=== PATIENT | female | born 1950 | race American Indian/Alaskan Native ===

== ENCOUNTER 2017-03-16 15:55 | Outpatient (CLI) | payer OTHER | END 2017-03-16 15:56 | disposition home or self-care (01) | LOC: LABHHL 15:55 | PROVIDERS: ATTEND Specialist | DX: L98.9 Disorder of the skin and subcutaneous tissue, unspecified (principal) | CPT/HCPCS: 88305 ==

== ENCOUNTER 2019-11-14 09:48 | Outpatient (CLI) | payer OTHER ==
--- NOTE | 2019-11-14 11:32 | Mammography Report ---
Procedure: Ultrasound-guided right breast nodule biopsy, Clinical information/indication: Patient with an intraductal 5 mm nodule in the upper outer right maria c ast, here for biopsy Comparison: Screening mammogram from 09/06/2027 and recent outside ultrasound imaging which the patien t did provide. Procedure: The benefits, indications and risks were discussed with the patient including but not limi cholo to bleeding, infection, hematoma formation, and inadequate tissue sampling. The patient agreed to proceed with both verbal and written consent. A timeout procedure was performed using 2 patient iden tifiers. The breast was prepped and draped in the usual sterile fashion. Lidocaine with and without epinephrin e were used for local anesthesia. Under direct ultrasound guidance, multiple core samples were obtain ed of the tiny right breast nodule using a vacuum-assisted needle. A biopsy marker was then placed. B iopsy device was removed and hemostasis achieved with manual pressure. A sterile dressing was applied to the skin. The patient tolerated the procedure without difficulty. No complications were encountered. Specimens were sent to pathology. The patient was then sent for a limited mammogram to confirm clip placement. IMPRESSION: 1. Technically successful right breast biopsy. 2. Post-procedure mammogram demonstrates satisfactory clip placement. An addendum will be issued once pathology returns on this procedure. Signer Name: Tomas Whiteside MD Signed: 11/14/2019 11:28 AM Workstation Name: [id number]
== END 2019-11-14 09:49 | disposition home or self-care (01) ==
LOC: SPVWC 09:48
PROVIDERS: ATTEND Surgery
DX: N63.11 Unspecified lump in the right breast, upper outer quadrant (principal); R92.8 Other abnormal and inconclusive findings on diagnostic imaging of breast; N64.89 Other specified disorders of breast
CPT/HCPCS: 88305

== ENCOUNTER 2020-02-20 10:36 | Outpatient (CLI) | payer OTHER ==
--- NOTE | 2020-02-20 16:38 | Magnetic Resonance Report ---
Bilateral breast MRI with and without contrast. History: Personal history of left breast cancer with mastectomy and reconstruction, recent history o f right clear nipple discharge, benign ultrasound-guided biopsy 11/14/2019 of small intraductal lesion Procedure: Axial T1 and T2-weighted fat-sat images were obtained precontrast. 18 cc MultiHance was i njected intravenously and serial axial T1-weighted images with fat saturation were obtained postcontr ast. 3-D MIP projections, Kinetic analysis and subtraction imaging was utilized to evaluate. A Stroho 8 channel breast coil was utilized for image acquisition. Comparison: Right breast ultrasound-guided biopsy images 11/14/2019, right mammogram 11/14/2019 Findings: Background level of enhancement is minimal. No suspicious axillary or clavicular nodes are identified. No abnormal bone marrow signal is seen. No significant chest wall enhancement is noted. Right breast: Mild benign-appearing stippled enhancement is noted. Relatively recent biopsy changes a re seen in the upper outer quadrant. No suspicious lesions are seen. No retroareolar abnormality is s een to explain history of clear nipple discharge. Left breast: Left mastectomy changes with TRAM flap obstruction are seen. No suspicious lesions are n oted. Impression: No suspicious lesions are seen. Recommend clinical follow-up of nipple discharge and sono graphic follow-up of prior biopsy site BIRADS: 2: Benign Signer Name: Jacob Bran MD Signed: 02/20/2020 4:34 PM Workstation Name: [id number]
== END 2020-02-20 10:37 | disposition home or self-care (01) ==
LOC: SPVIMAG 10:36
PROVIDERS: ATTEND Surgery
DX: N64.52 Nipple discharge (principal); Z85.3 Personal history of malignant neoplasm of breast
CPT/HCPCS: A9577; C8908; 77049

== ENCOUNTER 2020-09-11 14:30 | Outpatient (CLI) | payer OTHER ==
--- NOTE | 2020-09-12 07:13 | Mammography Report ---
DIGITAL SCREENING MAMMOGRAM WITH CAD, 09/11/2020 CLINICAL INFORMATION / INDICATION: Routine screening mammography. TECHNIQUE: Digital right 2D mammography was obtained in the craniocaudal and mediolateral oblique pr ojections. This examination was interpreted with the benefit of Computer-Aided Detection analysis. COMPARISON: 09/06/2019 FINDINGS: Breast Density: There are scattered areas of fibroglandular density. No dominant mass, suspicious calcifications, or architectural distortion in either breast. Biopsy clips noted on the right. Left-sided mastectomy change. IMPRESSION: No mammographic evidence of malignancy. Follow up recommendation: Routine yearly BI-RADS Category 2: Benign. A "normal" or negative report should not discourage follow up or biopsy of a clinically significant f inding. A written summary of these findings will be mailed to the patient. The patient will be entered into a mammography reporting system which will generate a reminder letter for the patient's next appointmen t at the appropriate interval. The [employer] recommends yearly mammograms starting at age 40 and continuing as l ricardo as a woman is in good health. Breast MRI is recommended for women with an approximate 20-25% or greater lifetime risk of breast cancer, including women with a strong family history of breast or ova robin cancer or who have been treated for Hodgkin's disease. Signer Name: Tomas Whiteside MD Signed: 09/12/2020 7:08 AM Workstation Name: [id number]
== END 2020-09-11 14:31 | disposition home or self-care (01) ==
LOC: SPVWC 14:30
PROVIDERS: ATTEND Surgery
DX: Z12.31 Encounter for screening mammogram for malignant neoplasm of breast (principal); Z90.12 Acquired absence of left breast and nipple

== ENCOUNTER 2020-11-12 08:09 | Outpatient (CLI) | payer OTHER ==
--- NOTE | 2020-11-12 09:06 | Ultrasound Report ---
ULTRASOUND BREAST RIGHT LIMITED, 11/12/2020 CLINICAL INFORMATION / INDICATION: Follow-up right breast biopsy, nipple discharge. TECHNIQUE: Targeted ultrasound evaluation was performed of the area of interest. COMPARISON: Prior right breast ultrasound-guided biopsy, 11/14/2019 and recent mammogram 09/11/2020. FINDINGS: The intraductal masslike area biopsied on 11/14/2019 cannot be reproduced sonographically. Recent mamm ogram showed no significant mass in this location. There is mild subareolar ductal ectasia noted, but without evidence for intraductal mass or other significant finding. IMPRESSION: No sonographic evidence of malignancy. Clinical correlation is recommended for complaint of nipple discharge. Follow up recommendation: Routine yearly BI-RADS Category 2: Benign. A normal or "negative" report should not preclude biopsy or follow-up of a clinically suspicious find ing. Signer Name: Leatha Adams MD Signed: 11/12/2020 9:01 AM Workstation Name: [id number]
== END 2020-11-12 08:10 | disposition home or self-care (01) ==
LOC: SPVWC 08:09
PROVIDERS: ATTEND Surgery
DX: N64.52 Nipple discharge (principal); R92.8 Other abnormal and inconclusive findings on diagnostic imaging of breast

== ENCOUNTER 2020-12-01 05:57 | Day surgery (SDC) | payer OTHER ==
[2020-12-01] MEDS ORDERED: ceFAZolin/STERILE WATER 2 GM/20 ML SYRINGE IV NR (06:00)
[2020-12-01] MEDS ORDERED: GABAPENTIN 300 MG CAP PO NR (06:00)
[2020-12-01] MEDS ORDERED: ACETAMINOPHEN 500 MG TAB PO SCH (06:00)
[2020-12-01] MEDS ORDERED: LACTATED RINGERS 1,000 ML IV SCH (06:00)
[2020-12-01] MEDS ORDERED: CELECOXIB 200 MG CAP PO NR (06:00)
[2020-12-01] MEDS ORDERED: MIDAZOLAM 2 MG/2 ML INJ IV NR (06:00)
--- NOTE | 2020-12-01 07:20 | Anesthesia Day of Surgery ---
Anesthesia Day of Surgery - Day of Surgery Patient Examined: Yes Patient H&P Reviewed: Yes Patient is NPO: Yes
--- NOTE | 2020-12-01 07:20 | Anesthesia Consultation ---
Anesthesia Consult and Med Hx Date of service: 12/01/20 - Airway Anesthetic Teeth Evaluation: Poor ROM Head & Neck: Adequate Mental/Hyoid Distance: Adequate Mallampati Class: Class III Intubation Access Assessment: Possibly Difficult - Pre-Operative Health Status ASA Pre-Surgery Classification: ASA3 Proposed Anesthetic Plan: General - Pulmonary Hx Smoking: Yes (former smoker) Hx Asthma: Yes Hx Respiratory Symptoms: No COPD: Yes (daily maintenance inhalers; no recent rescue inhaler use) Hx Sleep Apnea: Yes (no CPAP) - Cardiovascular System Hx Hypertension: Yes Hx Heart Attack/AMI: No Hx Percutaneous Transluminal Coronary Angioplasty (PTCA): No - Central Nervous System CVA: No - Endocrine Hx Renal Disease: No Hx Liver Disease: No 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
[2020-12-01] MEDS ORDERED: LIDOCAINE MPF (2%) 20 MG/1 ML VIAL 5 ML ONE (07:33)
[2020-12-01] MEDS ORDERED: dexAMETHasone 20 MG/5 ML VIAL ONE (07:33)
[2020-12-01] MEDS ORDERED: propofoL 200 MG/20 ML VIAL IV ONE (07:34)
[2020-12-01] MEDS ORDERED: LIDOCAINE (1%) 10 MG/1 ML VIAL 20 ML MDV ONE (07:51)
[2020-12-01] MEDS ORDERED: BACITRACIN ZINC OINT 28.4 GM TP ONE (07:52)
[2020-12-01] MEDS ORDERED: KETOROLAC 30 MG/1 ML INJ ONE (07:52)
[2020-12-01] MEDS ORDERED: BUPIVACAINE/PF (0.25%) 2.5 MG/ML 30 ML VIAL INFILTRATI ONE (07:52)
[2020-12-01] MEDS ORDERED: ONDANSETRON 4 MG/2 ML INJ IV PRN (08:00)
[2020-12-01] MEDS ORDERED: oxyCODONE /ACETAMINOPHEN 5-325MG TAB PO PRN (08:00)
[2020-12-01] MEDS ORDERED: fentaNYL 100 MCG/2 ML INJ IV PRN (08:00)
[2020-12-01] MEDS ORDERED: ePHEDrine SULFATE 50 MG/1 ML INJ ONE (08:39)
[2020-12-01] MEDS ORDERED: PHENYLEPHRINE/NS 1,000 MCG/10 ML SYRINGE (OR USE) IV ONE (09:00)
--- NOTE | 2020-12-01 09:33 | Short Stay Summary ---
Short Stay Documentation Date of service: 12/01/20 - History H&P: obtained from office - Allergies and Medications Current Medications: Allergies No Known Allergies Allergy (Verified 11/18/20 14:07) Home Medications Medication Instructions Recorded Confirmed Last Taken Type Albuterol Mdi (or & Nicu Only) 1 puff IH Q4HR PRN 11/26/20 11/26/20 Unknown History [ProAir HFA Inhaler] Ascorbic Acid [Vitamin C] 500 mg PO DAILY 11/26/20 11/26/20 Unknown History Calcium Glucarate [Calcium 500 mg PO DAILY 11/26/20 11/26/20 Unknown History D-Glucarate] Ergocalciferol(Vitamin D2)(Nf) 50,000 unit PO DAILY 11/26/20 11/26/20 Unknown History [Vitamin D (Nf)] Fluticasone/Umeclidin/Vilanter 1 each IH DAILY 11/26/20 11/26/20 Unknown History [Trelegy Ellipta 200-62.5-25] Olmesartan/Hydrochlorothiazide 1 each PO DAILY 11/26/20 11/26/20 Unknown History [Olmesartan-Hctz 40-12.5 mg Tab] Ibuprofen [Motrin 800 MG tab] 800 mg PO Q8HR PRN #10 tablet 12/01/20 Unknown Rx Active Medications Acetaminophen (Acetaminophen 500 Mg Tab) 1,000 mg PO PREOP FANY Stop: 12/01/20 21:00 Last Admin: 12/01/20 06:48 Dose: 1,000 mg Documented by: Cefazolin Sodium (Cefazolin/Sterile Water 2 Gm/20 Ml Syringe) 2 gm IV PREOP NR Stop: 12/01/20 21:00 Celecoxib (Celecoxib 200 Mg Cap) 200 mg PO PREOP NR Stop: 12/01/20 23:59 Last Admin: 12/01/20 06:48 Dose: 200 mg Documented by: Fentanyl (Fentanyl 100 Mcg/2 Ml Inj) 50 mcg IV Q5MIN PRN PRN Reason: Pain , Severe (7-10) Stop: 12/01/20 17:00 Gabapentin (Gabapentin 300 Mg Cap) 300 mg PO PREOP NR Stop: 12/01/20 23:59 Last Admin: 12/01/20 06:48 Dose: 300 mg Documented by: Lactated Ringer's (Lactated Ringers) 1,000 mls @ 100 mls/hr IV DIRECT FANY Stop: 12/01/20 23:59 Last Admin: 12/01/20 06:48 Dose: 100 mls/hr Documented by: Midazolam HCl (Midazolam 2 Mg/2 Ml Inj) 2 mg IV PREOP NR Stop: 12/01/20 23:59 Last Admin: 12/01/20 07:58 Dose: 2 mg Documented by: Ondansetron HCl (Ondansetron 4 Mg/2 Ml Inj) 4 mg IV ONCE PRN PRN Reason: Nausea And Vomiting Stop: 12/01/20 17:00 Oxycodone/Acetaminophen (Oxycodone /Acetaminophen 5-325mg Tab) 1 tab PO ONCE PRN PRN Reason: Pain, Moderate (4-6) Stop: 12/01/20 17:00 - Brief post op/procedure progress note Date of procedure: 12/01/20 Pre-op diagnosis: Right nipple spontaneous discharge Post-op diagnosis: same Procedure: Right nipple terminal duct excisional biopsy Anesthesia: GETA Findings: clear nipple discharge 11:00 position Surgeon: MARKO VALLE Estimated blood loss: minimal Pathology: list Specimen disposition: to lab Condition: stable - Disposition Condition at discharge: Good Disposition: 01 HOME / SELF CARE / HOMELESS Short Stay Discharge Plan Activity: other (no heavy lifting) Diet: regular Wound: keep clean and dry (wear breast binder; may shower in 48 hours; no baths, pools or lakes; apply bacitracin twice daily) Follow up with: MARKO VALLE MD [Staff Physician] - 7 Days Prescriptions: Ibuprofen [Motrin 800 MG tab] 800 mg PO Q8HR PRN #10 tablet PRN Reason: Pain , Severe (7-10)
--- NOTE | 2020-12-01 09:42 | Operative Report ---
Operative Report Operative Report: Operative Report: Date of procedure:December 01, 2020 Pre-operative diagnosis: Spontaneous right clear nipple discharge Post-operative diagnosis: Same Procedure name: Right nipple terminal duct excisional biopsy Surgeon: Gretel Cortez M.D. Anesthesia: Gen. Findings: Clear nipple discharge from rigjt nipple was appropriately identified and dissected free and sent to pathology Complications: None Drains: None Estimated blood loss: Minimal Disposition: PACU in good condition Indications for operative procedure: This is a 70 year old lady with a personal history of left breast cancer and right nipple spontaneous clear nipple discharge. She was diagnosed with stage 0 left breast cancer in 2000 and underwent a left total mastectomy with delayed latissimus dorsi flap with implant placement and right reduction mammoplasty. Patient was seen September 06, 2019 with findings of right clear spontaneous nipple discharge. Right mammogram at that time obtained with benign findings BI-RADS 2. Ultrasound performed at [facility] with findings of duct ectasia with intraductal small nodule at the 10 o'clock position of 4 x 3 mm and recommendation for biopsy BI-RADS 4. Patient underwent breast biopsy with benign findings. Recommendations were to proceed with right nipple terminal duct excisional biopsy given clear spontaneous nipple discharge and also given personal history left breast cancer which increased her risk for contralateral breast cancer. Patient declined at that time. Patient recently wished to proceed with surgery and recent diagnostic right mammogram and right breast ultrasound with benign findings BI-RADS 2. Patient understood pending final pathology additional surgery may be indicated. Patient wished to proceed with the above procedure. Procedure in detail: The patient was taken to the operating room. Gen. anesthesia was administered. The right breast was prepped and draped in the normal sterile operative fashion. The clear discharging duct from the right nipple was identified around at the 11 o'clock position. Lacrimal probe was inserted. A lateral periareolar incision was made with a 15 blade knife with dissection taken down to the subcutaneous tissues (incision made at prior incision from mammoplasty). First began with dissection of the tissues posterior to the nipple taken down posteriorly to 3 cm. The duct of concern was identified with lacrimal probe appropriately inserted within the duct of concern. The terminal duct was appropriately marked using a 3-0 Vicryl stitch. The terminal duct with its surrounding tissues were removed with the aid of Bovie cautery. Breast cavity with no suspicious findings present. Specimen was sent to pathology. Hemostasis was obtained with the aid of Bovie cautery. The breast cavity tissues were anesthetized with 1% lidocaine mixed with quarter percent Marcaine. The subcutaneous tissues were approximated and closed using interrupted 3-0 Vicryl and skin brought together and closed using a running 4-0 Monocryl followed by dermabond. She tolerated surgery very well and was awakened from anesthesia without any complications and transported to PACU in good condition.
[2020-12-01 10:53] VITALS: BP 113/58
--- NOTE | 2020-12-01 14:38 | Post Anesthesia Evaluation ---
- Post Anesthesia Evaluation Patient Participated: Yes Airway Patent: Yes Stable Respiratory Function: Yes Nausea/Vomiting: No Temp > 96.8F: Yes Pain Manageable: Yes Adequeate Hydration: Yes Anesthesia Complications: No
== END 2020-12-01 11:30 | disposition home or self-care (01) ==
LOC: OR 05:57
PROVIDERS: ATTEND Surgery
DX: N64.52 Nipple discharge (principal); J44.9 Chronic obstructive pulmonary disease, unspecified; I10 Essential (primary) hypertension; E11.9 Type 2 diabetes mellitus without complications; E66.9 Obesity, unspecified; G47.30 Sleep apnea, unspecified; M19.90 Unspecified osteoarthritis, unspecified site; Z87.891 Personal history of nicotine dependence; Z85.3 Personal history of malignant neoplasm of breast; Z79.899 Other long term (current) drug therapy; Z98.890 Other specified postprocedural states; Z20.822 Contact with and (suspected) exposure to COVID-19
CPT/HCPCS: 19120; 88307; J0690; J1100; J2250; J2370; J2405; J2704; J3010; J7120; U0003; J1885

== ENCOUNTER 2021-04-15 15:19 | Outpatient (CLI) | payer OTHER ==
--- NOTE | 2021-04-15 16:19 | Mammography Report ---
DIGITAL DIAGNOSTIC MAMMOGRAM WITH CAD CONVENTIONAL, 04/15/2021 CLINICAL INFORMATION / INDICATION: INCONCLUSIVE MAMMO R92.2 TECHNIQUE: Digital right mammographic imaging was performed. This examination was interpreted with the benefit of Computer-aided Detection analysis. COMPARISON: 09/11/2020, 11/14/2019 FINDINGS: Breast Density: There are scattered areas of fibroglandular density. No dominant mass, suspicious calcifications or architectural distortion in the right breast. Biopsy markers are noted within the upper outer and upper central quadrants of the breast. IMPRESSION: No mammographic evidence of malignancy. Follow up recommendation: Routine yearly BI-RADS Category 2: BENIGN. A "normal" or negative report should not discourage follow up or biopsy of a clinically significant f inding. A written summary of these findings will be mailed to the patient. The patient will be entered into a mammography reporting system which will generate a reminder letter for the patient's next appointmen t at the appropriate interval. According to the [employer], yearly mammograms are recommended starting at age 40 and continuing as long as a woman is in good health. Breast MRI is recommended for women with an dante roximately 20-25% or greater lifetime risk of breast cancer, including women with a strong family his tory of breast or ovarian cancer and women who have been treated for Hodgkin's disease. Signer Name: Sameer Tamayo DO Signed: 04/15/2021 4:14 PM Workstation Name: [email or web address]
== END 2021-04-15 15:20 | disposition home or self-care (01) ==
LOC: SPVWC 15:19
PROVIDERS: ATTEND Surgery
DX: R92.2 Inconclusive mammogram (principal)

== ENCOUNTER 2021-09-16 12:52 | Outpatient (CLI) | payer OTHER, MEDICARE ==
--- NOTE | 2021-09-18 16:58 | Mammography Report ---
DIGITAL SCREENING MAMMOGRAM WITH CAD, 09/16/2021 CLINICAL INFORMATION / INDICATION: Routine screening mammography. TECHNIQUE: Digital right 2D mammography was obtained in the craniocaudal and mediolateral oblique pr ojections. This examination was interpreted with the benefit of Computer-Aided Detection analysis. COMPARISON: 11/12/2020, 09/11/2020, 11/14/2019 FINDINGS: Breast Density: The breast is almost entirely fatty. No dominant mass, suspicious calcifications, or architectural distortion in the right breast. Biopsy clips are again seen. IMPRESSION: No mammographic evidence of malignancy. Follow up recommendation: Routine yearly screening mammogram. - The ACR recommends yearly screening MRI in patients with a personal history of breast cancer who [place] ve dense fibroglandular tissue as well in patients who were diagnosed with breast cancer under the ag e of 50. BI-RADS Category 2: BENIGN. A "normal" or negative report should not discourage follow up or biopsy of a clinically significant f inding. A written summary of these findings will be mailed to the patient. The patient will be entered into a mammography reporting system which will generate a reminder letter for the patient's next appointmen t at the appropriate interval. The [employer] recommends yearly mammograms starting at age 40 and continuing as l ricardo as a woman is in good health. Breast MRI is recommended for women with an approximate 20-25% or greater lifetime risk of breast cancer, including women with a strong family history of breast or ova robin cancer or who have been treated for Hodgkin's disease. Signer Name: Ubaldo Barth MD Signed: 09/18/2021 4:53 PM Workstation Name: [id number]
== END 2021-09-16 12:53 | disposition home or self-care (01) ==
LOC: SPVWC 12:52
PROVIDERS: ATTEND Surgery
DX: Z12.31 Encounter for screening mammogram for malignant neoplasm of breast (principal)